=== PATIENT | male | born 1985 | race Caucasian/White ===

== ENCOUNTER 2025-01-07 11:18 | Emergency (ER) | payer SELFPAY ==
[2025-01-07 11:20] VITALS: PULSE 106; RESP 16; TEMP 36.8; O2SAT 95
[2025-01-07 11:26] VITALS: BP 150/94; PULSE 114; TEMP 36.8; O2SAT 98
--- NOTE | 2025-01-07 11:31 | ED_ITS ---
HPI - General Adult 2 General: Chief complaint: Animal Bite Stated complaint: Bite by Copper Head Snake rt Time Seen by Provider: 01/07/25 11:20 Source: patient Mode of arrival: ambulatory Limitations: no limitations History of Present Illness: 39-year-old male states that he was bit by a copperhead 2 days ago on his left ankle. States has had some slight swelling and pain to his ankle. States he is also had some nauseous and had some feelings of being delirious but he states he feels improved currently he denies any headache denies any fever he does have some redness to his left ankle. His pain he rates a 4 out of 10. States has been taking vitamin C at home Associated symptoms: Deny chest pain, dyspnea, headache(s), nausea, rash or vomiting Related Data Previous Rx's ?Medication ?Instructions ?Recorded cephalexin 500 mg capsule 500 mg PO TID 7 days #21 cap s 01/07/25 Allergies Allergy/AdvReac Type Severity Reaction Status Date / Time No Known Allergies Allergy Verified 01/07/25 11:25 Review of Systems 2 Const: Denies: fever(s), chills, body aches or change in appetite ENMT: Denies: throat pain or dental pain Card: Denies: chest pain Resp: Denies: dyspnea GI: Denies: abdominal pain, nausea, vomiting or diarrhea Musc: Reports: extremity pain; Denies: neck pain or back pain Skin/Breast: Reports: erythema; Denies: rash Neuro: Denies: headache(s) Physical Exam 2 Const: COMMON NORMALS: no acute distress, patient oriented x3 and healthy appearing HENMT: COMMON NORMALS: normocephalic and atraumatic HEAD & SCALP: n ormocephalic and atraumatic Eye: COMMON NORMALS: conjunctivae normal CONJUNCTIVA: Yes conjunctivae normal Neck/C-Spine: COMMON NORMALS: full ROM and supple Chest: COMMONS NORMALS: normal inspection of the chest Resp: COMMON NORMALS: normal respiratory effort Cardio: COMMON NORMALS: regular rhythm and No murmurs present (Cardio) R ATE: tachycardic RHYTHM: regular rhythm Extremity: NARRATIVE EXTREMITY EXAM: Slight erythema noted to left ankle no signs of compartment syndrome distal pulses and sensation intact Neuro: COMMON NORMALS: patient oriented x3, moves all extremities and no focal motor deficits Psych: COMMON NORMALS: mental status grossly normal, Normal thought process present and cooperative THOUGHT PROCESS: Normal thought process present Skin: COMMON NORMALS: no rashes or lesions noted and no wounds GENERAL SKIN EXAM: no rashes or lesions noted Course 2 Vital Signs: Vital signs: Vital Signs Temperature 98.2 F 01/07/25 11:26 Pulse Rate 94 01/07/25 12:39 Respiratory Rate 16 01/07/25 11:20 Blood Pressure 153/101 01/07/25 12:39 Pulse Oximetry 98 01/07/25 12:39 Oxygen Delivery Me thod Room Air 01/07/25 12:39 MDM - General Adult Medical Decision Making Patient presents here with possible snake bite to left ankle does have some erythema slight cellulitis no signs of swelling no signs of compartment syndrome we will start him on antibiotics blood work here is normal stable for discharge follow-up PCP return if worsening. Medical Records I reviewed the patient's medical records. Lab Data I reviewed the patient's lab results. 01/07/25 11:34 01/07/25 11:34 Laboratory Results WBC 13.87 10^3/uL (3.29-11.43) H 01/07/25 11:34 RBC 4.78 10^6/uL (3.85-5.65) 01/07/25 11:34 Hgb 13.60 g/dL (11.27-16.99) 01/07/25 11:34 Hct 41.0 % (37-53) 01/07/25 11:34 MCV 85.8 fl (82-101) 01/07/25 11:34 MCH 28.5 pg (27-33) 01/07/25 11:34 MCHC 33.2 g/dL (30-55) 01/07/25 11:34 RDW 12.8 % (12.1-15.1) 01/07/25 11:34 Plt Count 325 10^3/cmm (157-399) 01/07/25 11:34 MPV 8.9 fL (7.4-10.4) 01/07/25 11:34 Neut % (Auto) 71.6 % 01/07/25 11:34 Lymph % (Auto) 17.5 % 01/07/25 11:34 [place] % (Auto) 9.8 % 01/07/25 11:34 Eos % (Auto) 0.4 % 01/07/25 11:34 Baso % (Auto) 0.3 % 01/07/25 11:34 Neut # (Auto) 9.92 10^3/uL (1.8-7.7) H 01/07/25 11:34 Lymph # (Auto) 2.4 10^3/uL (0.8-4.8) 01/07/25 11:34 [place] # (Auto) 1.4 10^3/uL (0.2-0.9) H 01/07/25 11:34 Eos # (Auto) 0.1 10^3/uL (0.0-0.8) 01/07/25 11:34 Baso # (Auto) 0.0 10^3/uL (0.0-0.1) 01/07/25 11:34 Nucleated RBC % (auto) 0 % 01/07/25 11:34 Nucleated RBCs # 0.0 /100WBC 01/07/25 11:34 PT 13.30 SECONDS (12.1-14.9) 01/07/25 11:34 INR 0.94 (0.8-1.2) 01/07/25 11:34 APTT 33.9 SECONDS (23.9-36.7) 01/07/25 11:34 D-Dimer <= 0.27 ug/mLFEU (0-0.59) 01/07/25 11:34 Sodium 140 mmol/L (136-145) 01/07/25 11:34 Potassium 3.8 mmol/L (3.5-5.1) 01/07/25 11:34 Chloride 102 mmol/L (98-107) 01/07/25 11:34 Carbon Dioxide 25 mmol/L (22-29) 01/07/25 11:34 Anion Gap 16.8 (5-19) 01/07/25 11:34 BUN 6 mg/dL (6-20) 01/07/25 11:34 Creatinine 0.7 mg/dL (0.7-1.2) 01/07/25 11:34 GFR Calculation 124.3 mL/min (90-130) 01/07/25 11:34 Glucose 129 mg/dL (65-115) H 01/07/25 11:34 Calculated Osmolality 289 mOsm/kg (285-295) 01/07/25 11:34 Calcium 8.8 mg/dL (8.5-10.5) 01/07/25 11:34 Total Bilirubin 1.0 mg/dL (0.15-1.2) 01/07/25 11:34 AST 5 U/L (0-40) 01/07/25 11:34 ALT 57 U/L (0-41) H 01/07/25 11:34 Alkaline Phosphatase 67 U/L (40-130) 01/07/25 11:34 Total Protein 8.5 g/dL (6.6-8.7) 01/07/25 11:34 Albumin 4.2 g/dL (3.5-5.2) 01/07/25 11:34 Globulin 4.3 g/dL (1.3-4.6) 01/07/25 11:34 All radiology interpretation(s) finalized by discharge Discharge Plan Discharge Patient Disposition: Home Clinical Impression: Snake bite, Cellulitis Condition: Stable Prescriptions: New cephalexin 500 mg capsule 500 mg PO TID 7 Days Qty: 21 0RF Discharge Orders: Discharge ED (Routine); Ordered 01/07/25 Ordered By: Phi Moralez Discharge Diet: Advance as tolerated Discharge Activity: Resume usual activity Patient Instructions: Cellulitis (ED), Snake Bite (ED) Print Language: Portuguese Coding Level of Care Code ED Property Coordinator for Radha Yanez
[2025-01-07] MEDS: ondansetron 2 mg/ML SDV 2 mL 4 MG IVP (11:38)
[2025-01-07] MEDS: morphine 4 mg/mL SDV 1 mL IVP (11:38)
[2025-01-07 11:41] LABS: Hematocrit 41.0 % (37-53); Hemoglobin 13.60 g/dL (11.27-16.99); Mean Corpuscular HGB Conc 33.2 g/dL (30-55); Mean Corpuscular Hemoglobin 28.5 pg (27-33); Mean Corpuscular Volume 85.8 fl (82-101); Nucleated Red Blood Cells % 0 %; Platelet Count 325 10^3/cmm (157-399); Red Blood Count 4.78 10^6/uL (3.85-5.65); White Blood Count 13.87 10^3/uL (3.29-11.43)
--- OUTSIDE RECORDS SUMMARY | 2025-01-07 11:47 | XMS_ITS | Encounter Summary ---
Author Organization [employer] [facility] Address [address] [place] [address] Care Team Providers Care Broker Name Role Phone Unavailable Primary Care Provider Unavailabl e Encounter Details Date Type Department Care Team (Latest Contact Info) Description 07/31/1998 Outpatient Historical [facility] Joe Banegas, Marcus Sheriff MD [address] [place] [address] Abdominal pain, unspecified site (Primary Dx); Impaired renal funct NEC; Screening for other and unspecified cardiovascular conditions Social History Tobacco Use Types Packs/Day Years Used Date Smoking Tobacco: Never Assessed Sex and Gender Information Value Date Recorded Sex Assigned at Not on file 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
--- OUTSIDE RECORDS SUMMARY | 2025-01-07 11:47 | XMS_ITS | Encounter Summary ---
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
--- OUTSIDE RECORDS SUMMARY | 2025-01-07 11:47 | XMS_ITS | Encounter Summary ---
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
--- OUTSIDE RECORDS SUMMARY | 2025-01-07 11:47 | XMS_ITS | Encounter Summary ---
Author Organization [employer] [facility] Address [address] [place] [address] Care Team Providers Care Wage And Salary Administrator Name Role Phone Unavailable Primary Care Provider Unavailabl e Encounter Details Date Type Department Care Team (Latest Contact Info) Description 08/14/1998 Outpatient Historical [facility] Joe Banegas, Marcus Sheriff MD [address] [place] [address] Impaired renal funct NEC (Primary Dx) Social History Tobacco Use Types Packs/Day Years Used Date Smoking Tobacco: Never Assessed Sex and Gender Information Value Date Recorded Sex Assigned at Not on file 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
--- OUTSIDE RECORDS SUMMARY | 2025-01-07 11:47 | XMS_ITS | Clinical Summary ---
Author Organization [employer] Address [address] 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
[2025-01-07 12:03] LABS: Alanine Aminotransferase 57 U/L (0-41); Albumin Level 4.2 g/dL (3.5-5.2); Alkaline Phosphatase 67 U/L (40-130); Anion Gap 16.8 (5-19); Blood Urea Nitrogen 6 mg/dL (6-20); Calcium 8.8 mg/dL (8.5-10.5); Carbon Dioxide 25 mmol/L (22-29); Chloride 102 mmol/L (98-107); Globulin 4.3 g/dL (1.3-4.6); Glucose 129 mg/dL (65-115); Osmolality Calculated 289 mOsm/kg (285-295); Potassium 3.8 mmol/L (3.5-5.1); Sodium 140 mmol/L (136-145); Total Protein 8.5 g/dL (6.6-8.7)
[2025-01-07 12:13] LABS: Aspartate Amino Transferase 5 U/L (0-40)
[2025-01-07] MEDS: cefTRIAXone 1,000 mg SDV 1000 MG IVP (12:35)
[2025-01-07 12:39] VITALS: BP 153/101; PULSE 94; O2SAT 98
[2025-01-07 12:40] LABS: INR 0.94 (0.8-1.2); Prothrombin Time 13.30 SECONDS (12.1-14.9)
[2025-01-07 12:56] LABS: Partial Thromboplastin Time 33.9 SECONDS (23.9-36.7)
[2025-01-07 13:03] VITALS: BP 150/107; PULSE 80; O2SAT 100
== END 2025-01-07 13:04 | disposition home or self-care (01) ==
PROVIDERS: Emergency Provider Emergency Medicine
DX: L03.116 Cellulitis of left lower limb (principal); T63.001A Toxic effect of unspecified snake venom, accidental (unintentional), initial encounter; X58.XXXA Exposure to other specified factors, initial encounter
CPT/HCPCS: 36415; 80053; 85025; 85378; 85610; 85730; 96361; 96374; 96375; 99284; J0696; J2270; J2405; J7030